=== PATIENT | female | born 1985 | race African-American/Black ===

== ENCOUNTER 2022-08-12 11:32 | Emergency (ER) | payer OTHER ==
[~2022-08-12] VITALS: Ht 170.2 cm; Wt 74.8 kg
[2022-08-12 11:34] VITALS: BP 118/73
[2022-08-12 12:45] LABS: BASOPHILS % (AUTO) 0.7 % (0.0-2.0); EOSINOPHILS # (AUTO) 0.2 K/uL (0-0.4); EOSINOPHILS % (AUTO) 4.9 % (0.0-4.0); HEMATOCRIT 33.6 % (36-48); HEMOGLOBIN 11.1 g/dL (12.0-16.0); LYMPHOCYTES # (AUTO) 1.3 K/uL (2.5-16.5); LYMPHOCYTES % (AUTO) 28.2 % (20.5-51.1); MEAN CORPUSCULAR HEMOGLOBIN 27 pg (27-31); MEAN CORPUSCULAR HGB CONC 33 g/dL (33-37); MEAN CORPUSCULAR VOLUME 82.2 fL (80-94); MONOCYTES # (AUTO) 0.3 K/uL (0.8-1.0); MONOCYTES % (AUTO) 6.9 % (1.7-9.3); NEUTROPHILS # (AUTO) 2.7 K/uL (1.8-7.7); NEUTROPHILS % (AUTO) 59.3 % (42.2-75.2); PLATELET COUNT (AUTO) 291 K/uL (140-450); RED BLOOD CELL COUNT(AUTO) 4.09 MIL/uL (4.20-5.40); RED CELL DISTRIBUTION WIDTH 17.1 % (11.6-13.7); WHITE BLOOD COUNT (AUTO) 4.6 K/uL (4.8-10.8)
[2022-08-12 13:11] LABS: ALBUMIN 3.2 g/dL (3.4-5.0); ANION GAP 14.2 (8-16); CREATININE 0.8 mg/dL (0.6-1.3); POTASSIUM 4.2 mmol/L (3.5-5.1); TOTAL BILIRUBIN 0.7 mg/dL (0.0-1.0)
--- NOTE | 2022-08-12 13:11 | NUR ---
PT CO POSSIBLE INFECTION TO C SECTION INCISION SITE SINCE THIS AM, PT STATES NOTED PURULENT DRAINAGE. IV INSERTED TO LEFT AC #[id number].
--- NOTE | 2022-08-12 13:25 | NUR ---
Patient taken for CT scan via wheelchair.
--- NOTE | 2022-08-12 13:38 | NUR ---
1332- Patient returned from imaging via wheechair to bed 2.
[2022-08-12] MEDS ORDERED: CEPH-588 PO (14:34)
[2022-08-12 14:54] VITALS: BP 118/73
--- NOTE | 2022-08-12 14:54 | NUR ---
IV removed, catheter intact and site benign. Applied folded 4x4 gauze and tape to stop bleeding.
== END 2022-08-12 14:54 | disposition home or self-care (01) ==
LOC: MED 11:32
DX: O86.09 Infection of obstetric surgical wound, other surgical site (principal)
CPT/HCPCS: 36415; 74177; 80053; 81002; 81025; 85025; 99285; Q9967